=== PATIENT | male | born 1960 | race Caucasian/White ===

== ENCOUNTER 2017-02-23 16:33 | Emergency (ER) | payer OTHER ==
--- NOTE | ~2017-02-23 | CT71 ---
[facility] A Service of [facility] RADIOLOGY TEXT RESULTS PATIENT: DONA OCONNOR LOCATION: [facility] : 60 UNIT #: [id number] AGE: [address]: Omero Gregorio MD SEX: M ORDER DR: [id number] [place], [place] [address] [id number] MR#: [id number] Acc #: [id number] NAME: DONA OCONNOR : 1960 SEX: M STUDY DATE/TIME: 02/23/2017 19:12 UNIT: JANET ROOM: STUDY DESCRIPTION: CT Head Wo Contrast Attending Physician: Anastacio Gregorio M.D. Ordering Physician: Ryan Bojorquez M.D. Primary Care Physician: Muna Garrison M.D. MEDICAL IMAGING REPORT This report is preliminary unless electronic signature is present EXAM CT head without contrast INDICATIONS Laceration to the forehead, dizziness, weakness and headache after a fall today. PROCEDURE Unenhanced CT of the head. This CT exam was performed with one or more of the following radiation dose reduction techniques: automatic control, adjustment of mA and/or kV according to patient size, and iterative reconstruction. COMPARISON 09/14/2016 FINDINGS No acute hemorrhage. No abnormal mass effect, extraaxial fluid collection or hydrocephalus. Mild asymmetric soft tissue swelling and associated soft tissue injury in the left supraorbital region. No underlying fracture. IMPRESSION 1. No acute intracranial findings. 2. A soft tissue injury in the left supraorbital region. No underlying fracture Dictated by... Anastacio Butterfield M.D. THIS IS AN ELECTRONICALLY VERIFIED REPORT Anastacio Butterfield M.D. at 02/24/2017 10:39 AM EED/rnr [facility] A Service [facility] RADIOLOGY TEXT RESULTS PATIENT: DONA OCONNOR LOCATION: [facility] : 60 UNIT #: [id number] AGE: [address]: Omero Gregorio MD SEX: M ORDER DR: TD: 02/23/2017 20:32 JOB #: [id number] MEDICAL IMAGING REPORT Page 1 of 1 COPY
--- NOTE | ~2017-02-23 | EKG ---
PATIENT: DONA OCONNOR UNIT #: [id number] Ventricular Rate: 88 BPM Atrial Rate: 88 BPM P-R Interval: 200 ms QRS Duration: 98 ms Q-T Interval: 372 ms QTC Calculation(Bezet): 450 ms P [place]: 74 degrees Calculated R [place]: 86 degrees Calculated T [place]: 74 degrees Diagnosis Line: Normal sinus rhythm Diagnosis Line: Normal ECG Diagnosis Line: When compared with ECG of 14-SEP-2016 00:18, Diagnosis Line: Non-specific change in ST segment in Inferior Diagnosis Line: leads Diagnosis Line: ST no longer depressed in Anterior leads Diagnosis Line: T wave inversion no longer evident in Lateral Diagnosis Line: leads Diagnosis Line: QT has shortened Diagnosis Line: Confirmed by BEBE YATES MD ([id number]) on 02/24/2017 Diagnosis Line: 10:39:14 AM INTERPRETING MD: TRUDY CABALLERO
[~2017-02-23 16:33] MED LIST: ALBUTEROL17 GM INH; AMITRYPTYLINE PO; AUGMENTIN875 M1 PO; CELEBREX100 M1 PO; FLEXERIL10 MG PO; NEURONTIN300 MG PO; PREDNISONE PO; PRISTIQ50 MG PO; PROTONIX PO; ULTRAM PO; ZOLOFT100 MG PO
[2017-02-23 18:16] LABS: BASOPHIL% 0.3 % (0-2.5); EOSINOPHIL% 0.1 % (0.0-7.0); HEMATOCRIT 37.3 % (38.0-50.0); HEMOGLOBIN 12.2 gm/dL (13.0-16.0); LYMPHOCYTE# 1.3 X10e3 (1.0-3.5); LYMPHOCYTE% 10.1 % (17.0-45.0); MEAN CELL VOLUME 85.1 FL (83-96); MEAN CORPUSCULAR HEMOGLOBIN 27.8 PG (28-34); MEAN CORPUSCULAR HGB CONC 32.7 g/dL (30-36); MEAN PLATELET VOLUME 6.6 FL (6.5-11.5); MONOCYTE# 0.8 X10e3 (0-1.0); MONOCYTE% 6.3 % (3.0-12.0); NEUTROPHIL# 10.6 X10e3 (1.5-7.1); NEUTROPHIL% 83.2 % (40-75); PLATELET COUNT 297 X10e3 (140-420); RED BLOOD COUNT 4.38 X10e (3.90-5.60); RED CELL DISTRIBUTION WIDTH 14.7 % (11.0-15.5); WHITE BLOOD COUNT 12.8 X10e3 (4.0-10.5)
[2017-02-23 18:18] LABS: DIFF IND NO
[2017-02-23 18:42] LABS: POC - CKMB 1.2 ng/mL (0.0-7.9); POC - TROPONIN <0.05 ng/mL (<=0.05)
[2017-02-23 18:52] LABS: ALCOHOL BLOOD <5 mg/dL (0); BLOOD UREA NITROGEN 23 mg/dL (9-23); CALCIUM SERUM 8.9 mg/dL (8.4-10.2); CARBON DIOXIDE 26 mmol/L (22-31); CHLORIDE 104 mmol/L (100-111); GLOM FILT RATE Estimated 36.2 mL/min (>60); GLUCOSE FASTING 110 mg/dL (70-110); POTASSIUM 4.1 mmol/L (3.5-5.1); SODIUM 135 mmol/L (135-145)
[2017-04-15] MEDS ORDERED: FLOMAX0.4 M1 PO (13:43)
[2017-04-15] MEDS ORDERED: HYDROXYZINE HCL25 M1 PO (13:43)
[2017-04-15] MEDS ORDERED: AMITRIPTYLINE100 MG PO (13:44)
[2017-04-15] MEDS ORDERED: SYMBICORT INH (13:45)
== END 2017-02-23 21:27 | disposition home or self-care (01) ==
LOC: CED 16:33
PROVIDERS: Emergency Medicine
DX: S01.112A Laceration without foreign body of left eyelid and periocular area, initial encounter (principal); R55 Syncope and collapse; F32.9 Major depressive disorder, single episode, unspecified; W01.0XXA Fall on same level from slipping, tripping and stumbling without subsequent striking against object, initial encounter; Y92.410 Unspecified street and highway as the place of occurrence of the external cause
CPT/HCPCS: 12013; 36415; 70450; 80048; 82553; 84484; 85025; 93005; 96360; 99284; G0480

== ENCOUNTER → 2017-04-15 | Day surgery (SDC) | payer OTHER ==
[~2017-04-15] MED LIST changes: +AMITRIPTYLINE100 MG PO; +FLOMAX0.4 M1 PO; +HYDROXYZINE HCL25 M1 PO; +SYMBICORT INH
--- NOTE | ~2017-04-15 | OR ---
Unit #: [id number] #: [id number] Patient: DONA OCONNOR [id number] [address] [address] [id number] O MR#: [id number] NAME: DONA OCONNOR ROOM: Date of Procedure: 04/15/2017 Admission Date: 04/15/2017 Surgeon: Barry Bragg M.D. : 1960 Attending Physician: Barry Bragg M.D. Referring Physician: Barry Bragg M.D. Primary Care Physician: Muna Garrison M.D. PROCEDURE OPERATIVE NOTE PREOPERATIVE DIAGNOSES Bladder tumor, gross hematuria. POSTOPERATIVE DIAGNOSES Bladder tumor, gross hematuria. PROCEDURE PERFORMED Cystoscopy, TURBT, (1) . ANESTHESIA General. PROCEDURE After obtaining informed consent, the patient was taken to the operating room and placed under general anesthetic, positioned in the lithotomy. His penis and perineum were prepped and draped in the usual sterile fashion. Cystoscopy was performed revealing a normal urethra. At the bladder neck you could see tumor circumferentially. Inside the bladder there was tumor on the trigone (left and right), right lateral wall and anteriorly on the right. Could not identify left or right ureteral orifices. Using a 24 Guyanese resectoscope loop, the tumor was resected. There was a very large bladder tumor, easily over 5 cm. Hemostasis was achieved using electrocautery. I still could not identify the ureteral orifices after completion of the procedure. Care was taken not to injure the bladder. At the end of the procedure there was no active bleeding. I left his bladder partially full. If he can urinate, he can go home without a catheter. I will ask him to return to see me in 1-2 weeks (2) the pathology report. He tolerated the procedure well. Dictated by... Jasper Rodriguez/spike TD: 04/18/2017 09:38 JOB #: [id number] Unit #: [id number] #: [id number] Patient: DONA OCONNOR PROCEDURE OPERATIVE NOTE Page 1 of 1 X Barry Bragg MD PROCEDURE OPERATIVE NOTE
== END | disposition home or self-care (01) ==
LOC: CSUR 13:15
DX: C67.0 Malignant neoplasm of trigone of bladder (principal); J44.9 Chronic obstructive pulmonary disease, unspecified; F17.210 Nicotine dependence, cigarettes, uncomplicated; Z79.899 Other long term (current) drug therapy
CPT/HCPCS: 88307; 88342; J0330; J0690; J2405; J3010

== ENCOUNTER → 2017-05-27 | Outpatient (CLI) | payer OTHER ==
--- NOTE | ~2017-05-27 | CT2 ---
[facility] A Service of [facility] RADIOLOGY TEXT RESULTS PATIENT: DONA OCONNOR LOCATION: [facility] : 60 UNIT #: [id number] AGE: [address]: James Crystal MD SEX: M ORDER DR: [id number] [facility] [address] [place], [place] [address] [id number] O MR#: [id number] Acc #: [id number] NAME: DONA OCONNOR : 1960 SEX: M STUDY DATE/TIME: 05/27/2017 12:55 UNIT: [facility] ROOM: STUDY DESCRIPTION: CT Abd and Pelv W Cont Attending Physician: James Crystal M.D. Referring Physician: James Crystal M.D. Ordering Physician: James Crystal M.D. Primary Care Physician: Muna Garrison M.D. MEDICAL IMAGING REPORT This report is preliminary unless electronic signature is present EXAM CT of the abdomen and pelvis with contrast. INDICATION Lower abdominal pain for the past 2 months. PROCEDURE Contrast-enhanced CT of the abdomen and pelvis. This CT exam was performed with one or more of the following radiation dose reduction techniques: automatic exposure control, adjustment of mA and/or kV according to patient size, and iterative reconstruction. COMPARISON 11/10/2015 FINDINGS ABDOMEN WITH CONTRAST: Included lung bases are clear. Scattered tiny cysts in the liver. Spleen, kidneys, adrenal glands, pancreas and gallbladder are unremarkable. There is moderate colonic stool and gas. Bowel loops nondilated. PELVIS WITHOUT CONTRAST: There is abnormal thickening and retraction along the right and posterior aspects of the bladder. This thickening is inseparable from the prostate gland. There is no pathologically enlarged pelvic lymph node. No aggressive appearing bone lesion. IMPRESSION 1. Abnormal thickening of the bladder along the right and posterior bladder wall, suspicious for malignancy. This is inseparable from the prostate gland involvement is not excluded. 2. No definitive evidence for metastatic disease in the abdomen or [facility] A Service of [facility] RADIOLOGY TEXT RESULTS PATIENT: DONA OCONNOR LOCATION: [facility] : 60 UNIT #: [id number] AGE: [address]: James Crystal MD SEX: M ORDER DR: pelvis. 3. Correlation with direct visualization is suggested. Dictated by... Anastacio Butterfield M.D. THIS IS AN ELECTRONICALLY VERIFIED REPORT Anastacio Butterfield M.D. at 05/30/2017 8:51 AM SU/navya TD: 05/27/2017 17:14 JOB #: [id number] MEDICAL IMAGING REPORT Page 1 of 1 COPY
[2017-05-27 14:00] LABS: POC - CREATININE 1.32 mg/dL (0.64-1.27)
== END | disposition home or self-care (01) ==
LOC: CCAT 11:10
PROVIDERS: Internal Medicine Hematology & Oncology
DX: C67.2 Malignant neoplasm of lateral wall of bladder (principal); G62.9 Polyneuropathy, unspecified; R93.5 Abnormal findings on diagnostic imaging of other abdominal regions, including retroperitoneum
CPT/HCPCS: 74177; 82565; Q9967